=== PATIENT | male | born 1995 | race African-American/Black ===

== ENCOUNTER 2017-02-14 19:23 | Emergency (ER) | payer SELFPAY ==
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
== END 2017-02-14 22:15 | disposition home or self-care (01) ==
LOC: CED 19:23 → CFTX 19:23
DX: S01.412A Laceration without foreign body of left cheek and temporomandibular area, initial encounter (principal); Z23 Encounter for immunization; W50.0XXA Accidental hit or strike by another person, initial encounter; Y92.009 Unspecified place in unspecified non-institutional (private) residence as the place of occurrence of the external cause
CPT/HCPCS: 12011; 70450; 90471; 90715; 99284